=== PATIENT | male | born 1955 | race Caucasian/White ===

== ENCOUNTER 2021-01-31 09:48 | Outpatient (CLI) | payer MEDICARE, BC ==
[2021-01-31] VITALS (22 sets, daily range): BP systolic 122–148; BP diastolic 60–110
== END 2021-01-31 23:59 | disposition home or self-care (01) ==
LOC: CARD DIAG 09:48
PROVIDERS: ATTEND Internal Medicine Cardiovascular Disease
DX: R55 Syncope and collapse (principal)
CPT/HCPCS: 93660

== ENCOUNTER 2024-07-24 12:31 | Emergency (ER) | payer BC, MEDICARE ==
[~2024-07-24] VITALS: Ht 188 cm; Wt 98.1 kg
[2024-07-24 12:41] VITALS: TEMP 98.1
[2024-07-24] MEDS: TETanus/Pertussis (Acell)/Diphther VAC/PF (Tdap-Adult) 0.5ml syringe IMVAC ONE (13:51)
[2024-07-24] MEDS: LIDOcaine 1% W/epiNEPHrine 1:100,000 20ml vial IJ ONE (14:08)
[2024-07-24] MEDS ORDERED: CEPH500C81 PO (14:16)
[2024-07-24] MEDS: cephalexin 250mg capsule PO ONE (14:42)
[2024-07-24] MEDS: bacitracin 15gm ointment TP ONE (14:42)
[2024-07-24 15:08] VITALS: BP 147/78; PULSE 54; RESP 16; O2SAT 96
== END 2024-07-24 15:11 | disposition home or self-care (01) ==
LOC: ER 12:32
DX: S06.0XAA Concussion with loss of consciousness status unknown, initial encounter (principal); S61.401A Unspecified open wound of right hand, initial encounter; S80.211A Abrasion, right knee, initial encounter; S50.311A Abrasion of right elbow, initial encounter; S00.31XA Abrasion of nose, initial encounter; Z79.2 Long term (current) use of antibiotics; V19.9XXA Pedal cyclist (driver) (passenger) injured in unspecified traffic accident, initial encounter; Y93.55 Activity, bike riding; Y92.89 Other specified places as the place of occurrence of the external cause; Y99.8 Other external cause status
CPT/HCPCS: 12031; 70450; 72125; 73080; 90715; 99285; A6258; A6402; A6446; G0008; J7030; L0172; Z7610; 90471; A4565; A6449